=== PATIENT | male | born 1945 ===

== ENCOUNTER → 2017-03-29 | Outpatient (CLI) | payer MEDICARE ==
[~2017-03-29] MED LIST: ABA250I; ABA250I IV; ACET-1966 PO; ACET-2031 PO; ALL300 PO; ALLO-119 PO; ALP25 PO; ASP81 PO; ASPI81TA94 PO; BENA40TA52 PO; CALC-488 PO; CINN500C12 PO; CITA-139 PO; CLIN-75 PO; DILT120T13 PO; DIPH-740 PO; FOLI-68 PO; HYDR12.556 PO; HYDR12.561 PO; INSU100C12 SQ; INSU100C14 SQ; INSU100I28 SQ; INSU100I30 SUBQ; INSU100I35 SQ; LANI SQ; LANI SUBQ; METF-1 PO; METF-409 PO; METF-420 PO; METH2.5T43 PO; MULT-775 PO; MULT-865 PO; OLME1TAB63 PO; OLME40TA17 PO; ONDA4TAB97 PO; PRAV40TA77 PO; PRAV40TA78 PO; RANI-324 PO; SULF-198 PO; TRAM-420 PO; TRAM-627 PO
[2017-04-14 08:26] VITALS: BMI 24.0
== END ==
LOC: AMB 06:34
PROVIDERS: ATTEND Nurse Practitioner
DX: M25.511 Pain in right shoulder (principal); I50.9 Heart failure, unspecified; E11.9 Type 2 diabetes mellitus without complications; I10 Essential (primary) hypertension
CPT/HCPCS: A0425; A0428; A0888

== ENCOUNTER 2017-04-18 09:53 | Outpatient (RCR) | payer MEDICARE ==
[2017-04-14 08:26] VITALS: BMI 24.0
--- NOTE | 2017-04-18 15:19 | Medical Nutrition Therapy ---
Nutritional Education Nutrition Education Topic: Diabetic Nutrition Learning Barriers: Cognitive Learning Readiness: Interested Teaching Methods: Discussion, Handout Response to Teaching: Verbalize understanding Teaching Recipient: Patient, Primary Caregiver Nutrition Counseling: Pt and attended session. Pt states takes care of diabetes. Reviewed plate method with pt and . Provided meal plan of 45gm CHO/meal with 15gm CHO snacks or 1.5 c CHO/meal 1/2c snacks. Recommended taking 30gm CHO with protein if BG >300 and taking 15U insulin at bedtime to avoid lows at night. Recommend taking 15gm CHO with protein if BG < 300 and taking less insulin. Pt and eats out daily. Reviewed typical meals and the CHO amount he recieves. Pt gave permission to call 04/23 and review with . Will ask to track what he is eating and will make a handout on how to make restaurant foods work with his BG levels. Encoruaged pt to limit snacks to 1 serving or 1/2c between meals. Nutrition Monitoring & Eval RD Patient Assessment Time: [address] Assessment Type: RD Education Nutritional Comment: Provided 30 minutes diabetes education focusing on nutrition. Copies To Copies to: WIL TENA MD, BETH Apr 18, 2017 15:19
[2017-05-21] MEDS ORDERED: INSU100I30 SUBQ ×2 (11:21→11:25)
== END 2017-05-21 15:49 | disposition home or self-care (01) ==
LOC: DIET 09:53
PROVIDERS: ATTEND Family Medicine
DX: Z71.3 Dietary counseling and surveillance (principal); E11.9 Type 2 diabetes mellitus without complications; Z79.4 Long term (current) use of insulin
CPT/HCPCS: G0108 ×2

== ENCOUNTER 2017-04-29 12:44 | Outpatient (RCR) | payer MEDICARE ==
[2017-02-26] MEDS: LIDOCAINE/SOD BICARB 8.4% SYR ID PRN (08:15)
[2017-02-26 08:24] VITALS: BP 119/80
[2017-02-26 08:28] LABS: PLATELET COUNT, AUTOMATED 225 K/uL (150-450)
[2017-03-28 13:18] LABS: PLATELET COUNT, AUTOMATED 279 K/uL (150-450)
[2017-03-28] MEDS: LIDOCAINE/SOD BICARB 8.4% SYR ID PRN (13:20)
[~2017-04-29 12:44] MED LIST changes: +ABATACEPT 250 MG SDV 750 MG in NS(*) 0.9% 100 ML BAG 100 ML IVPB ONE; +DEXAMETHASONE SOD 4 MG/ML VIAL ONE; +DEXTROSE 5%(*) 100 ML BAG 100 ML IVPB PRN; +LIDOCAINE MPF 1% 5 ML VIAL ONE; +METOCLOPRAMIDE 10 MG/2 ML SDV ONE; +NS(*) 0.9% 100 ML BAG 100 ML IVPB PRN; +ONDANSETRON 4 MG/2 ML VIAL ONE; +PROPOFOL EMUL(*) 10MG/ML 20 ML 20 ML ONE; +ePHEDrine 25 MG/5 ML DISP.SYR IVP ONE; +fentaNYL CITR 100 MCG/2 ML AMP ONE
[2017-04-29 12:58] VITALS: BP 134/75
[2017-04-29 13:01] LABS: PLATELET COUNT, AUTOMATED 309 K/uL (150-450)
[2017-04-29] MEDS ORDERED: ABATACEPT 250 MG SDV 750 MG in NS(*) 0.9% 100 ML BAG 100 ML IVPB ONE (14:30)
[2017-05-21] MEDS ORDERED: INSU100I30 SUBQ ×2 (11:21→11:25)
== END 2017-05-26 ==
LOC: SPU 12:44
PROVIDERS: ATTEND Internal Medicine Rheumatology
DX: M05.79 Rheumatoid arthritis with rheumatoid factor of multiple sites without organ or systems involvement (principal)
CPT/HCPCS: 85025; 96365; J0129; J7050; 82040; 82247; 82310; 82374; 82435; 82565; 82947; 84075; 84132; 84155; 84295; 84450; 84460; 84520; J1100; J2001; J2405; J2704; J2765; J3010

== ENCOUNTER → 2017-06-06 | Outpatient (CLI) | payer MEDICARE ==
[2017-04-14 08:26] VITALS: BMI 24.0
[~2017-06-06] MED LIST changes: -ABATACEPT 250 MG SDV 750 MG in NS(*) 0.9% 100 ML BAG 100 ML IVPB ONE; -DEXAMETHASONE SOD 4 MG/ML VIAL ONE; -DEXTROSE 5%(*) 100 ML BAG 100 ML IVPB PRN; -LIDOCAINE MPF 1% 5 ML VIAL ONE; -METOCLOPRAMIDE 10 MG/2 ML SDV ONE; -NS(*) 0.9% 100 ML BAG 100 ML IVPB PRN; -ONDANSETRON 4 MG/2 ML VIAL ONE; -PROPOFOL EMUL(*) 10MG/ML 20 ML 20 ML ONE; -ePHEDrine 25 MG/5 ML DISP.SYR IVP ONE; -fentaNYL CITR 100 MCG/2 ML AMP ONE
== END ==
LOC: LAB 08:58
PROVIDERS: ATTEND Family Medicine
DX: Z02.9 Encounter for administrative examinations, unspecified (principal)

== ENCOUNTER → 2017-06-06 | Outpatient (CLI) | payer MEDICARE ==
[2017-04-14 08:26] VITALS: BMI 24.0
== END ==
LOC: LAB 09:00
PROVIDERS: ATTEND Family Medicine
DX: L02.31 Cutaneous abscess of buttock (principal); A49.01 Methicillin susceptible Staphylococcus aureus infection, unspecified site
CPT/HCPCS: 87070; 87077; 87186

== ENCOUNTER 2017-07-28 13:44 | Inpatient (IN) | payer MEDICARE ==
[2017-04-14 08:26] VITALS: Ht 165.1 cm; Wt 77.1 kg
[~2017-07-28] VITALS: Ht 165.1 cm; Wt 77.1 kg
[2017-07-28] VITALS (21 sets, daily range): BP systolic 117–156; BP diastolic 60–118
[~2017-07-28 13:44] MED LIST changes: +CLOB15OI16 TP; +CLOB50SO11 TP; +HYDR15CR4 TP
[2017-07-28] MEDS ORDERED: NS(*) 0.9% 1000 ML BAG 1,000 ML IV ONE (13:48)
--- NOTE | 2017-07-28 13:48 | ER Report ---
History and Physical Time Seen By : 13:48 Hx. of Stated Complaint: High blood sugar HPI/ROS 72-year-old male history of RA was at the cancer center for treatment they checked his blood sugar was noted to be over 800 was sent to the emergency room at that point states that he has not been taking his insulin as prescribed he supposed be taking 15 of Lantus the morning 50 units at night didn't 15 with each meal with short acting insulin states he does not take that as prescribed with he may have taken 50 units last night before bedtime Allergies: Coded Allergies: No Known Drug Allergies (Verified , 03/29/17) Home Meds Active Scripts Clobetasol Propionate 0.05% Solution (CLOBETASOL PROPIONATE 0.05% SOLUTION) 50 Ml Solution, 1 BIENVENIDO TP BID for 30 Days, #1 BOT 2 Refills Prov:PAMELA PHELPS [facility] 07/24/17 Hydrocortisone Valerate 0.2% 15 Gm Cream (HYDROCORTISONE VALERATE 0.2% 15 GM CREAM) 15 Gm Cream..g., 1 BIENVENIDO TP BID for 30 Days, #1 TUBE 2 Refills Prov:PAMELA PHELPS [facility] 07/24/17 Clobetasol Propionate (CLOBETASOL PROPIONATE) 15 Gm Oint...g., 1 BIENVENIDO TP BID for 30 Days, #30 GM 2 Refills Prov:PAMELA PHELPS 07/24/17 Insulin Glargine,Hum.rec.anlog (LANTUS SOLOSTAR) 100 Unit/1 Ml Insuln.pen, 15- 40 UNIT SUBQ BID, #2 BOX 11 Refills take 15U in the morning and 40U at night Prov:WIL TENA MD 06/13/17 Sulfamethoxazole/Trimet 800-160 Mg Tab (BACTRIM DS TABLET) 1 Each Tablet, 1 TAB PO Q12H for 3 Days, #6 TAB continue bactrim twice daily for a total of 10 days Prov:WIL TENA MD 06/11/17 Tramadol Hcl (ULTRAM) 50 Mg Tablet, 50 MG PO Q6H Y for PAIN for 10 Days, #30 TAB Prov:WIL TENA MD 06/06/17 Reported Medications Acetaminophen (TYLENOL) 325 Mg Tablet, 325 MG PO PRN, TAB 06/26/17 Abatacept (Orencia 250 mg Vial) 250 Mg Vial, 750 MG IV q month 04/13/17 Insulin Aspart (NOVOLOG FLEXPEN) 100 Unit/1 Ml Insuln.pen, 3-6 UNIT SQ TIDCF 04/13/17 Allopurinol (ZYLOPRIM) 300 Mg Tablet, 150 MG PO QDAY, TAB 04/13/17 Ranitidine Hcl (ZANTAC) 150 Mg Tablet, 1 TAB PO BID Y for HEARTBURN, TAB 10/15/16 Pravastatin Sodium (PRAVASTATIN SODIUM) 40 Mg Tablet, 1 TAB PO QDAY 10/15/16 Multivitamin (DAILY MULTIPLE VITAMIN) 1 Each Tablet, 1 TAB PO DAILY 10/15/16 Diltiazem Hcl (DILTIAZEM HCL) 120 Mg Tablet, 1 TAB PO DAILY 10/15/16 Aspirin (ASPIRIN) 81 Mg Tab.chew, 81 MG PO QDAY, TAB.CHEW 10/15/16 Past Medical/Surgical History History of hypertension high cholesterol type II diabetes and rheumatoid arthritis Reviewed Nurses Notes: Yes Old Medical Records Reviewed: Yes Hx Smoking: No Smoking Status: Former Smoker Exposure to Second Hand Smoke?: No Hx Substance Use Disorder: No Hx Alcohol Use: No Family History of: HTN, Other (mother has diagnosis of stomach cancer) Constitutional Vital Sign - Last 24 Hours 07/28/17 07/28/17 07/28/17 07/28/17 13:49 13:52 13:54 13:59 Pulse 83 81 72 Resp 18 B/P (MAP) 172/86 172/86 (114) Pulse Ox 85 90 94 O2 Delivery Room Air 07/28/17 07/28/17 07/28/17 07/28/17 14:04 14:09 14:14 14:19 Pulse 73 71 72 71 Resp 18 24 20 17 B/P (MAP) 153/78 (103) Pulse Ox 93 92 92 95 07/28/17 07/28/17 07/28/17 07/28/17 14:23 14:24 14:29 14:30 Pulse 73 74 Resp 14 20 B/P (MAP) 164/68 (100) Pulse Ox 91 91 O2 Flow Rate 2.0 07/28/17 07/28/17 07/28/17 07/28/17 14:34 14:39 14:44 14:49 Pulse 75 ? 85 Resp 16 Pulse Ox 93 92 07/28/17 07/28/17 07/28/17 07/28/17 14:52 14:54 14:59 15:00 Pulse 91 85 B/P (MAP) 160/76 (104) 160/78 (105) Pulse Ox 95 94 07/28/17 07/28/17 07/28/17 07/28/17 15:04 15:09 15:15 15:24 Pulse 84 78 84 Resp 25 21 B/P (MAP) 169/83 (111) Pulse Ox 93 95 07/28/17 07/28/17 07/28/17 07/28/17 15:26 15:30 15:39 15:41 Pulse ??? B/P (MAP) 145/90 (108) 158/101 (120) 156/77 (103) Physical Exam CHIEF COMPLAINT: High blood sugar HISTORY OF PRESENT ILLNESS: 72-year-old male sent over from the cancer clinic was noted to have a blood sugar over 300 and his screening lab work is asymptomatic at this point is noncompliant by his own history unsure what insulin he has taken the last 24 hours REVIEW OF SYSTEMS: Respiratory: No cough, no dyspnea. Cardiovascular: No chest pain, no palpitations. Gastrointestinal: No vomiting, no abdominal pain. Musculoskeletal: No back pain. Medical Decision Making Data Points Result Diagram: 07/28/17 1550 Laboratory Hematology Test 07/28/17 13:50 07/28/17 14:15 07/28/17 15:35 Urine Color Colorless Urine Clarity Clear Urine pH 6.0 pH (4.8-9.5) Urine Specific [place] 1.018 Urine Protein Negative mg/dL (NEGATIVE) Urine Glucose (UA) 500 mg/dL (NEGATIVE) Urine Ketones Negative mg/dL (NEGATIVE) Urine Blood Negative (NEGATIVE) Urine Nitrite Negative (NEGATIVE) Urine Bilirubin Negative (NEGATIVE) Urine Urobilinogen Negative mg/dL (0.2-1.9) Urine Leukocyte Esterase Negative (NEGATIVE) Urine RBC None /HPF (0-2/HPF) Urine WBC None /HPF (0-5/HPF) Urine Squamous Epithelial Cells None /LPF (</=FEW) Urine Bacteria Negative /HPF (NONE-FEW) Urine Mucus None /HPF (NONE-FEW) Venous Blood pH 7.31 (7.31-7.41) Osmolality 317 mOSM/K (275-295) Troponin I < 0.012 ng/ml Acetone, Qualitative Negative Whole Blood Glucose > 600 mg/DL (75-110) Chemistry Test 07/28/17 13:50 07/28/17 14:15 07/28/17 15:35 Urine Color Colorless Urine Clarity Clear Urine pH 6.0 pH (4.8-9.5) Urine Specific [place] 1.018 Urine Protein Negative mg/dL (NEGATIVE) Urine Glucose (UA) 500 mg/dL (NEGATIVE) Urine Ketones Negative mg/dL (NEGATIVE) Urine Blood Negative (NEGATIVE) Urine Nitrite Negative (NEGATIVE) Urine Bilirubin Negative (NEGATIVE) Urine Urobilinogen Negative mg/dL (0.2-1.9) Urine Leukocyte Esterase Negative (NEGATIVE) Urine RBC None /HPF (0-2/HPF) Urine WBC None /HPF (0-5/HPF) Urine Squamous Epithelial Cells None /LPF (</=FEW) Urine Bacteria Negative /HPF (NONE-FEW) Urine Mucus None /HPF (NONE-FEW) Venous Blood pH 7.31 (7.31-7.41) Osmolality 317 mOSM/K (275-295) Troponin I < 0.012 ng/ml Acetone, Qualitative Negative Whole Blood Glucose > 600 mg/DL (75-110) Toxicology Test 07/28/17 14:15 Acetone, Qualitative Negative Urinalysis Test 07/28/17 13:50 Urine Color Colorless Urine Clarity Clear Urine pH 6.0 pH (4.8-9.5) Urine Specific [place] 1.018 Urine Protein Negative mg/dL (NEGATIVE) Urine Glucose (UA) 500 mg/dL (NEGATIVE) Urine Ketones Negative mg/dL (NEGATIVE) Urine Blood Negative (NEGATIVE) Urine Nitrite Negative (NEGATIVE) Urine Bilirubin Negative (NEGATIVE) Urine Urobilinogen Negative mg/dL (0.2-1.9) Urine Leukocyte Esterase Negative (NEGATIVE) Urine RBC None /HPF (0-2/HPF) Urine WBC None /HPF (0-5/HPF) Urine Squamous Epithelial Cells None /LPF (</=FEW) Urine Bacteria Negative /HPF (NONE-FEW) Urine Mucus None /HPF (NONE-FEW) EKG/Imaging EKG Interpretation EKG at 1350 normal sinus rhythm ventricular rate 75 QTc is 413 ED Course/Re-evaluation Clinical Indication for ER IV: Hydration ED Course Normal saline 1 L in the emergency room and given 10 units of IV the regular insulin and started on insulin drip drip per protocol I did discuss this patient with Dr. Carrillo we'll admit him ICU Re-evaluation Blood sugar after one hour of on insulin drip is still reading high serum glucose is been ordered Decision to Disposition Date: Jul 28, 2017 Decision to Disposition Time: 15:16 Depart Departure Latest Vital Signs Vital Signs Date Time Temp Pulse Resp B/P (MAP) Pulse Ox O2 Delivery O2 Flow Rate FiO2 07/28/17 15:41 156/77 (103) 07/28/17 15:39 ??? 07/28/17 15:24 21 95 07/28/17 14:23 2.0 07/28/17 13:49 Room Air Impression: Primary Impression: Hyperglycemia Condition: Improved Disposition: Admitted from ER Referrals: WIL TENA MD (PCP) LORELEI DIAZ Jul 28, 2017 13:48
--- NOTE | 2017-07-28 14:13 | EKG ---
FACILITY: [facility] PATIENT NAME: SUSHMA CHOWDARY : [id number] MR: [id number] V: [id number] EXAM DATE: ORDERING PHYSICIAN: LORELEI DIAZ TECHNOLOGIST: RILEY Clark Reason : HIGH BLOOD SUGAR Blood Pressure : / mmHG Vent. Rate : 075 BPM Atrial Rate : 075 BPM P-R Int : 184 ms QRS Dur : 074 ms QT Int : 370 ms P-R-T Axes : 072 000 056 degrees QTc Int : 413 ms Normal sinus rhythm Normal ECG When compared with ECG of 13-APR-2017 22:07, premature atrial complexes are no longer present Nonspecific T wave abnormality no longer evident in Inferior leads Confirmed by LUISANA WEN ([id number]) on 07/29/2017 7:07:40 AM Referred By: JOE Confirmed By:LUISANA WEN
--- NOTE | 2017-07-28 14:14 | RADIOLOGY IMAGING REPORT ---
FACILITY: PATIENT NAME: Joe Day : 1945 MR: [id number] V: [id number] EXAM DATE: ORDERING PHYSICIAN: LORELEI DIAZ TECHNOLOGIST: Location: [facility] - [place] Patient: Joe Day : 1945 Visit/Account:[id number] Date of Sevice: 07/28/2017 CHEST SINGLE AP Indication: High blood sugar.. Comparison: 04/14/2017. Findings: Cardiomediastinal silhouette and pulmonary vessels within normal limits for the technique and inspira tion. There is no focal infiltrate or lobar consolidation. No pneumothorax or pleural effusion. No nodule. Mild scarring in the left lower lobe. Chronic interstitial changes. Upper abdomen is unrem arkable. No acute bony abnormality. IMPRESSION: 1. No acute cardiopulmonary process. Report Dictated By: Pawel Reed at 07/28/2017 2:10 PM Report E-Signed By: Pawel Reed at 07/28/2017 2:11 PM WSN:[id number]
[2017-07-28] MEDS ORDERED: INS HUM REG* 100 U/ML(ER ONLY) 100 UNIT in NS(*) 0.9% 100 ML BAG 99 ML IV SCH (14:25)
[2017-07-28] MEDS ORDERED: INSU HUM REG 100 U/ML(ER ONLY) 10 ML VIAL IV ONE (14:25)
[2017-07-28] MEDS ORDERED: INSULIN HUM REG 100 UN/ML 3 ML 100 UNIT in NS(*) 0.9% 100 ML BAG 100 ML IV SCH (16:49)
--- NOTE | 2017-07-28 17:09 | History & Physical ---
History of Present Illness Chief Complaint Elevated blood sugars. History of Present Illness This patient presented to special procedures for his Orencia injection, but was found to have a significantly elevated blood sugar on his lab work. He was sent directly to the emergency room. The patient reports that his sugars have been steadily increasing over the past several days. History Problems: (1) Rheumatoid arthritis Status: Chronic (2) Essential hypertension Status: Chronic (3) DM2 (diabetes mellitus, type 2) Home Meds Active Scripts Clobetasol Propionate 0.05% Solution (CLOBETASOL PROPIONATE 0.05% SOLUTION) 50 Ml Solution, 1 BIENVENIDO TP BID for 30 Days, #1 BOT 2 Refills Prov:PAMELA PHELPS [facility] 07/24/17 Hydrocortisone Valerate 0.2% 15 Gm Cream (HYDROCORTISONE VALERATE 0.2% 15 GM CREAM) 15 Gm Cream..g., 1 BIENVENIDO TP BID for 30 Days, #1 TUBE 2 Refills Prov:PAMELA PHELPS [facility] 07/24/17 Clobetasol Propionate (CLOBETASOL PROPIONATE) 15 Gm Oint...g., 1 BIENVENIDO TP BID for 30 Days, #30 GM 2 Refills Prov:PAMELA PHELPS [facility] 07/24/17 Insulin Glargine,Hum.rec.anlog (LANTUS SOLOSTAR) 100 Unit/1 Ml Insuln.pen, 15- 40 UNIT SUBQ BID, #2 BOX 11 Refills take 15U in the morning and 40U at night Prov:WIL TENA MD 06/13/17 Sulfamethoxazole/Trimet 800-160 Mg Tab (BACTRIM DS TABLET) 1 Each Tablet, 1 TAB PO Q12H for 3 Days, #6 TAB continue bactrim twice daily for a total of 10 days Prov:WIL TENA MD 06/11/17 Tramadol Hcl (ULTRAM) 50 Mg Tablet, 50 MG PO Q6H Y for PAIN for 10 Days, #30 TAB Prov:WIL TENA MD 06/06/17 Reported Medications Acetaminophen (TYLENOL) 325 Mg Tablet, 325 MG PO PRN, TAB 06/26/17 Abatacept (Orencia 250 mg Vial) 250 Mg Vial, 750 MG IV q month 04/13/17 Insulin Aspart (NOVOLOG FLEXPEN) 100 Unit/1 Ml Insuln.pen, 3-6 UNIT SQ TIDCF 04/13/17 Allopurinol (ZYLOPRIM) 300 Mg Tablet, 150 MG PO QDAY, TAB 04/13/17 Ranitidine Hcl (ZANTAC) 150 Mg Tablet, 1 TAB PO BID Y for HEARTBURN, TAB 10/15/16 Pravastatin Sodium (PRAVASTATIN SODIUM) 40 Mg Tablet, 1 TAB PO QDAY 10/15/16 Multivitamin (DAILY MULTIPLE VITAMIN) 1 Each Tablet, 1 TAB PO DAILY 10/15/16 Diltiazem Hcl (DILTIAZEM HCL) 120 Mg Tablet, 1 TAB PO DAILY 10/15/16 Aspirin (ASPIRIN) 81 Mg Tab.chew, 81 MG PO QDAY, TAB.CHEW 10/15/16 Allergies: Coded Allergies: No Known Drug Allergies (Verified , 03/29/17) Patient History: FH: brain cancer FATHER FH: diabetes mellitus Siblings x8 FH: rheumatoid arthritis Siblings x8 FH: stomach cancer MOTHER Hx Smoking: No Smoking Status: Former Smoker Exposure to Second Hand Smoke?: No Caffeine Intake: Coffee, Soda Caffeine/Cups Per Day: 2-3 CUPS COFFEE, A LOT OF SODA Hx Alcohol Use: No Hx Substance Use Disorder: No Social Drug Use: Never Review of Systems All Systems Reviewed/Normal: Yes Exam Vital Signs Vital Signs Date Time Temp Pulse Resp B/P (MAP) Pulse Ox O2 Delivery O2 Flow Rate FiO2 07/28/17 16:15 161/81 (107) 07/28/17 16:09 78 94 07/28/17 15:24 21 07/28/17 14:23 2.0 07/28/17 13:49 Room Air Neuro: No Gross deficits Eyes: PERRLA Cardiovascular: Regular Rate and Rhythm Respiratory: Clear to Auscultation GI: Abd Soft and Non-Tender Extremities: No Edema Integumentary: No Cyanosis Medical Decision Making Data Points Result Diagram: 07/28/17 1550 Assessment and Plan Problems: (1) Hyperosmolar non-ketotic state in patient with type 2 diabetes mellitus Status: Acute Assessment & Plan: He did present with a blood sugar >800, but was not acidotic. He has received approximately 2 liters of fluid since arrival. We have decreased his insulin infusion and will complete his current fluid bolus. Fingerstick glucoses are ordered every hour. (2) DM2 (diabetes mellitus, type 2) Assessment & Plan: He is on chronic treatment with Lantus and NovoLog. He may be a candidate for an insulin pump given his difficulty with controlling his sugars, but we will defer this to his primary physician. (3) Essential hypertension Status: Chronic Assessment & Plan: He is on chronic treatment with diltiazem. (4) Rheumatoid arthritis Status: Chronic Assessment & Plan: He is on chronic treatment with Orencia. Central Venous Access Medical Necessity for Access: IV Access, Medication Administration Copies to: WIL TENA MD Venous Thromboembolism Antithrombotics Is Pt On Any Antithrombotics?: No Exam Sepsis Risk: No Definite Risk LUISANA WEN DO Jul 28, 2017 17:09
[2017-07-28] MEDS: KCL/D1/2NS 20 MEQ 1000 ML 1,000 ML IV PRN ×2 (17:44→21:43)
[2017-07-28] MEDS ORDERED: LANI SUBQ (19:38)
[2017-07-29] VITALS (7 sets, daily range): BP systolic 129–140; BP diastolic 62–76
[2017-07-29] MEDS: KCL/D1/2NS 20 MEQ 1000 ML 1,000 ML IV PRN ×2 (01:37→05:20)
[2017-07-29 05:30] LABS: PLATELET COUNT, AUTOMATED 192 K/uL (150-450)
[2017-07-29] MEDS ORDERED: INSU100I35 SQ ×2 (08:03→17:11)
[2017-07-29] MEDS ORDERED: ACET-1966 PO (08:03)
[2017-07-29] MEDS ORDERED: LANI SUBQ ×2 (08:05→17:13)
--- NOTE | 2017-07-29 08:19 | Hospitalist Depart ---
Discharge Summary Reason for Hosp/Final Diag: (1) Hyperosmolar non-ketotic state in patient with type 2 diabetes mellitus Status: Acute Hospital Course & Plan: He did present with a blood sugar >800, but was not acidotic. He did receive approximately 2 liters of IV fluids for dehydration. He was initially placed on IV insulin and fingerstick glucoses were ordered every hour. His glucoses improved significantly. His electrolytes were monitored closely and no abnormalities were noted. He was transitioned back to subcutaneous insulin. (2) DM2 (diabetes mellitus, type 2) Hospital Course & Plan: He is on chronic treatment with Lantus and NovoLog. His hyperglycemia is due to noncompliance. He freely admits he does not watch his diet and doses his insulin very irregularly. I discussed with the patient and his the need to adhere to the prescribed regimen and diet. He does understand he risks complications related to his diabetes. He voiced understanding, but believes "it is hard". I offered to have further teaching, but he declined. His voiced her frustration at trying to get him to take care of his diabetes as well. At this point, we will continue his usual regimen of Lantus 30units AM and 50units PM with Novolog 6units with each meal. He will work on his diet, keep a record of his glucoses AC and HS, and follow up with Dr. Tena and Dr. Alpesh Saini, PharmD in 7-10 days. (3) Essential hypertension Status: Chronic Hospital Course & Plan: He is on chronic treatment with diltiazem. (4) Rheumatoid arthritis Status: Chronic Hospital Course & Plan: He is on chronic treatment with Orencia. Departure Weight (Pounds): 170 Weight (Ounces): 1.0 Result Diagram: 07/29/1751707/29/17517 Item Value Date Time Sodium Level 127 mmol/L L 07/28/17 1315 Potassium Level 5.4 mmol/L H 07/28/17 1315 Chloride Level 91 mmol/L L 07/28/17 1315 Carbon Dioxide Level 22 mmol/L 07/28/17 1315 Blood Urea Nitrogen 13 mg/dl 07/28/17 1315 Creatinine 1.20 mg/dl 07/28/17 1315 Glomerular Filtration Rate Calc 59.3 07/28/17 1315 Random Glucose 839 mg/dl *H 07/28/17 1315 Calcium Level 8.1 mg/dl L 07/28/17 1315 Total Bilirubin 0.4 mg/dl 07/28/17 1315 Aspartate Amino Transf (AST/SGOT) 21 U/L 07/28/17 1315 Alanine Aminotransferase (ALT/SGPT) 30 U/L 07/28/17 1315 Alkaline Phosphatase 173 U/L H 07/28/17 1315 Total Protein 7.4 gm/dl 07/28/17 1315 Albumin 4.1 g/dl 07/28/17 1315 Troponin I < 0.012 ng/ml 07/28/17 1415 Whole Blood Glucose > 600 mg/DL *H 07/28/17 1406 Osmolality 317 mOSM/K H 07/28/17 1415 Whole Blood Glucose > 600 mg/DL *H 07/28/17 1535 Random Glucose 569 mg/dl *H 07/28/17 1550 Whole Blood Glucose 439 mg/DL H 07/28/17 1723 Whole Blood Glucose 325 mg/DL H 07/28/17 1834 Whole Blood Glucose 398 mg/DL H 07/28/17 1941 Whole Blood Glucose 488 mg/DL H 07/28/17 2036 Whole Blood Glucose 446 mg/DL H 07/28/17 2153 Whole Blood Glucose 428 mg/DL H 07/28/17 2246 Whole Blood Glucose 357 mg/DL H 07/28/17 2343 Whole Blood Glucose 334 mg/DL H 07/29/17 0047 Whole Blood Glucose 291 mg/DL H 07/29/17 0140 Whole Blood Glucose 248 mg/DL H 07/29/17 0239 Whole Blood Glucose 232 mg/DL H 07/29/17 0348 Whole Blood Glucose 200 mg/DL H 07/29/17 0515 Calcium Level 8.9 mg/dl 07/29/17 0518 Random Glucose 214 mg/dl H 07/29/17 0518 Glomerular Filtration Rate Calc > 60.0 07/29/17 0518 Creatinine 1.00 mg/dl 07/29/17 0518 Blood Urea Nitrogen 8 mg/dl L 07/29/17 0518 Carbon Dioxide Level 25 mmol/L 07/29/17 0518 Chloride Level 100 mmol/L 07/29/17 0518 Potassium Level 4.3 mmol/L 07/29/17 0518 Sodium Level 135 mmol/L L 07/29/17 0518 Venous Blood pH 7.31 07/28/17 1415 White Blood Count 5.9 k/uL 07/28/17 1315 Hemoglobin 14.3 g/dL 07/28/17 1315 Hematocrit 46.0 % 07/28/17 1315 Platelet Count 263 K/uL 07/28/17 1315 Platelet Count 192 K/uL 07/29/17 0518 Hematocrit 39.5 % L 07/29/17 0518 Hemoglobin 13.0 g/dL L 07/29/17 0518 White Blood Count 5.6 k/uL 07/29/17 0518 Acetone, Qualitative Negative 07/28/17 1415 Urine Color Colorless 07/28/17 1350 Urine Clarity Clear 07/28/17 1350 Urine pH 6.0 pH 07/28/17 1350 Urine Specific [place] 1.018 07/28/17 1350 Urine Glucose (UA) 500 mg/dL 07/28/17 1350 Urine Protein Negative mg/dL 07/28/17 1350 Urine Blood Negative 07/28/17 1350 Urine Ketones Negative mg/dL 07/28/17 1350 Urine Nitrite Negative 07/28/17 1350 Urine Bilirubin Negative 07/28/17 1350 Urine Urobilinogen Negative mg/dL 07/28/17 1350 Urine Leukocyte Esterase Negative 07/28/17 1350 Urine RBC None /HPF 07/28/17 1350 Urine WBC None /HPF 07/28/17 1350 Urine Squamous Epithelial Cells None /LPF 07/28/17 1350 Urine Bacteria Negative /HPF 07/28/17 1350 Urine Mucus None /HPF 07/28/17 1350 Imaging PATIENT NAME: Joe Day : 1945 MR: [id number] V: [id number] EXAM DATE: ORDERING PHYSICIAN: LORELEI DIAZ TECHNOLOGIST: [place] [facility] [place] : 1945 Visit/Account:[id number] Date of Sevice: 07/28/2017 CHEST SINGLE AP Indication: High blood sugar.. Comparison: 04/14/2017. Findings: Cardiomediastinal silhouette and pulmonary vessels within normal limits for the technique and inspiration. There is no focal infiltrate or lobar consolidation. No pneumothorax or pleural effusion. No nodule. Mild scarring in the left lower lobe. Chronic interstitial changes. Upper abdomen is unremarkable. No acute bony abnormality. IMPRESSION: 1. No acute cardiopulmonary process. Report Dictated By: Pawel Reed at 07/28/2017 2:10 PM Report E-Signed By: Pawel Reed at 07/28/2017 2:11 PM WSN:[id number] EKG PATIENT NAME: JOE DAY : [id number] MR: [id number] V: [id number] EXAM DATE: ORDERING PHYSICIAN: LORELEI DIAZ TECHNOLOGIST: RILEY Clark Reason : HIGH BLOOD SUGAR Blood Pressure : / mmHG Vent. Rate : 075 BPM Atrial Rate : 075 BPM P-R Int : 184 ms QRS Dur : 074 ms QT Int : 370 ms P-R-T Axes : 072 000 056 degrees QTc Int : 413 ms Normal sinus rhythm Normal ECG When compared with ECG of 13-APR-2017 22:07, premature atrial complexes are no longer present Nonspecific T wave abnormality no longer evident in Inferior leads Confirmed by LUISANA WEN ([id number]) on 07/29/2017 7:07:40 AM Referred By: JOE Confirmed By:LUISANA WEN Condition: Improved Discharge: Home, Self Care Follow-Up Labs: Finger Sticks (AC and HS) Time Spent: > 30 min Discharge Instructions Home Meds Active Scripts Insulin Glargine (LANTUS) 100 Unit/Ml Soln, 0 SUBQ BID for 30 Days, VIAL TAKE 30 UNITS IN THE MORNING 50 UNITS AT NIGHT Prov:NIKITA BETANCOURT MD 07/29/17 Acetaminophen (TYLENOL) 325 Mg Tablet, 325 MG PO Q6H Y for PAIN MDD 3000mg for 30 Days, TAB Prov:NIKITA BETANCOURT MD 07/29/17 Insulin Aspart (NOVOLOG FLEXPEN) 100 Unit/1 Ml Insuln.pen, 6 UNIT SQ TIDCF for 30 Days, VIAL Prov:NIKITA BETANCOURT MD 07/29/17 Clobetasol Propionate 0.05% Solution (CLOBETASOL PROPIONATE 0.05% SOLUTION) 50 Ml Solution, 1 BIENVENIDO TP BID for 30 Days, #1 BOT 2 Refills Prov:PAMELA PHELPS 07/24/17 Hydrocortisone Valerate 0.2% 15 Gm Cream (HYDROCORTISONE VALERATE 0.2% 15 GM CREAM) 15 Gm Cream..g., 1 BIENVENIDO TP BID for 30 Days, #1 TUBE 2 Refills Prov:PAMELA PHELPS [facility] 07/24/17 Tramadol Hcl (ULTRAM) 50 Mg Tablet, 50 MG PO Q6H Y for PAIN for 10 Days, #30 TAB Prov:SHERON TENA MD 06/06/17 Reported Medications Abatacept (Orencia 250 mg Vial) 250 Mg Vial, 750 MG IV q month 04/13/17 Allopurinol (ZYLOPRIM) 300 Mg Tablet, 150 MG PO QDAY, TAB 04/13/17 Ranitidine Hcl (ZANTAC) 150 Mg Tablet, 1 TAB PO BID Y for HEARTBURN, TAB 10/15/16 Pravastatin Sodium (PRAVASTATIN SODIUM) 40 Mg Tablet, 1 TAB PO QDAY 10/15/16 Diltiazem Hcl (DILTIAZEM HCL) 120 Mg Tablet, 1 TAB PO DAILY 10/15/16 Aspirin (ASPIRIN) 81 Mg Tab.chew, 81 MG PO QDAY, TAB.CHEW 10/15/16 Discontinued Reported Medications Multivitamin (DAILY MULTIPLE VITAMIN) 1 Each Tablet, 1 TAB PO DAILY 10/15/16 Discontinued Scripts Clobetasol Propionate (CLOBETASOL PROPIONATE) 15 Gm Oint...g., 1 BIENVENIDO TP BID for 30 Days, #30 GM 2 Refills Prov:JOZEF PHELPSTENA Miles [facility] 07/24/17 Insulin Glargine 100 Un/Ml Pen (LANTUS SOLOSTAR PEN) 100 Unit/1 Ml Insuln.pen, 15-40 UNIT SUBQ BID, #2 BOX 11 Refills take 15U in the morning and 40U at night Prov:SHERON TENA MD 06/13/17 Sulfamethoxazole/Trimet 800-160 Mg Tab (BACTRIM DS TABLET) 1 Each Tablet, 1 TAB PO Q12H for 3 Days, #6 TAB continue bactrim twice daily for a total of 10 days Prov:SHERON TENA MD 06/11/17 Follow up Referrals: Internal Medicine @ [facility] with Sheron Tena Md Diet: Diabetic Activity: As Tolerated Special Instructions: Follow up with Dr. Tena in 7-10 days or sooner if any problems. Copies to: SHERON TENA MD; JOSLYN SAINI PHARMD Venous Thromboembolism Antithrombotics Is Pt On Any Antithrombotics?: Yes (aspirin) NIKITA BETANCOURT MD Jul 29, 2017 08:19
[2017-07-29] MEDS ORDERED: ENOXAPARIN 40 MG/0.4ML SYR SC SCH (09:00)
[2017-07-29] MEDS ORDERED: DILTIAZEM CD 120 MG CAPCR PO SCH (09:00)
[2017-07-29] MEDS ORDERED: INSULIN HUM REG 100 UN/ML 3 ML 100 UNIT in NS(*) 0.9% 100 ML BAG 99 ML IV SCH (15:00)
[2017-07-30] MEDS ORDERED: INSU100I28 SQ (08:46)
[2017-07-30] MEDS ORDERED: INFLUENZA VIRUS VAC 0.5 ML SYR IM ONLY ONE (09:00)
== END 2017-07-29 09:15 | disposition home or self-care (01) | DRG 639 ==
LOC: ER 13:57 → ICU 15:43
PROVIDERS: ADMIT Family Medicine; ATTEND Family Medicine
DX: E11.00 Type 2 diabetes mellitus with hyperosmolarity without nonketotic hyperglycemic-hyperosmolar coma (NKHHC) (principal); E86.0 Dehydration; I10 Essential (primary) hypertension; T38.3X6A Underdosing of insulin and oral hypoglycemic [antidiabetic] drugs, initial encounter; E11.65 Type 2 diabetes mellitus with hyperglycemia; M06.9 Rheumatoid arthritis, unspecified; E78.00 Pure hypercholesterolemia, unspecified; Z87.891 Personal history of nicotine dependence; Z91.128 Patient's intentional underdosing of medication regimen for other reason; Z79.4 Long term (current) use of insulin
CPT/HCPCS: 36415; 36416; 71045; 81001; 82009; 82310; 82374; 82435; 82565; 82800; 82947; 82948; 83930; 84132; 84295; 84443; 84484; 84520; 85025; 93005; 96361; 96365; 99284; J1815; J3480; J7030; J7050

== ENCOUNTER → 2017-08-26 | Outpatient (RCR) | payer MEDICARE ==
[2017-04-14 08:26] VITALS: BMI 24.0
[2017-05-29] MEDS: NS(*) 0.9% 100 ML BAG 100 ML IVPB PRN (13:23)
[2017-05-29] MEDS: LIDOCAINE/SOD BICARB 8.4% SYR ID PRN (13:24)
[2017-05-29 13:31] LABS: PLATELET COUNT, AUTOMATED 287 K/uL (150-450)
[2017-05-29 14:04] VITALS: BP 143/79
[2017-05-29 15:45] VITALS: BP 141/72
[2017-06-26 12:51] VITALS: BP 135/71
[2017-06-26 12:59] LABS: PLATELET COUNT, AUTOMATED 284 K/uL (150-450)
[2017-07-28 13:03] VITALS: BP 150/86
[2017-07-28 13:21] LABS: PLATELET COUNT, AUTOMATED 263 K/uL (150-450)
[~2017-08-26] MED LIST changes: +ABATACEPT 250 MG SDV 750 MG in NS(*) 0.9% 100 ML BAG 100 ML IVPB ONE; +DEXTROSE 5%(*) 100 ML BAG 100 ML IVPB PRN; -RANI-324 PO; +RANI-366 PO
[2017-08-26 12:48] VITALS: BP 143/71
[2017-08-26 13:00] LABS: PLATELET COUNT, AUTOMATED 276 K/uL (150-450)
[2017-08-26] MEDS: LIDOCAINE/SOD BICARB 8.4% SYR ID PRN (13:39)
[2017-08-26] MEDS: NS(*) 0.9% 100 ML BAG 100 ML IVPB PRN (13:39)
== END ==
LOC: SPU 05-28 08:32
PROVIDERS: ATTEND Internal Medicine Rheumatology
DX: M05.79 Rheumatoid arthritis with rheumatoid factor of multiple sites without organ or systems involvement (principal)
CPT/HCPCS: 85025; 96365; 96372; J0129; J7050; 82040; 82247; 82310; 82374; 82435; 82565; 82947; 84075; 84132; 84155; 84295; 84450; 84460; 84520

== ENCOUNTER → 2017-09-10 | Outpatient (CLI) | payer MEDICARE ==
[2017-04-14 08:26] VITALS: BMI 24.0
[~2017-09-10] MED LIST changes: -ABATACEPT 250 MG SDV 750 MG in NS(*) 0.9% 100 ML BAG 100 ML IVPB ONE; -CITA-139 PO; +CITA-145 PO; -DEXTROSE 5%(*) 100 ML BAG 100 ML IVPB PRN; +METF-421 PO
== END ==
LOC: LAB 15:54
PROVIDERS: ATTEND Family Medicine
DX: E11.9 Type 2 diabetes mellitus without complications (principal)
CPT/HCPCS: 36415; 83036

== ENCOUNTER → 2017-09-22 | Outpatient (REF) | payer MEDICARE ==
[2017-04-14 08:26] VITALS: BMI 24.0
== END ==
PROVIDERS: ATTEND Family Medicine
DX: L03.90 Cellulitis, unspecified (principal)
CPT/HCPCS: 82040; 82247; 82310; 82374; 82435; 82565; 82947; 84075; 84132; 84155; 84295; 84450; 84460; 84520

== ENCOUNTER 2017-09-25 10:05 | Outpatient (RCR) | payer MEDICARE ==
[2017-04-14 08:26] VITALS: BMI 24.0
[2017-08-26 12:48] VITALS: BP 143/71
[~2017-09-25 10:05] MED LIST changes: +DEXTROSE 5%(*) 100 ML BAG 100 ML IVPB PRN; +LIDOCAINE/SOD BICARB 8.4% SYR ID PRN; +NS(*) 0.9% 100 ML BAG 100 ML IVPB PRN
[2017-09-26 13:06] LABS: PLATELET COUNT, AUTOMATED 289 K/uL (150-450)
[2017-09-26] MEDS ORDERED: ABATACEPT 250 MG SDV 750 MG in NS(*) 0.9% 100 ML BAG 100 ML IVPB ONE (13:40)
== END 2017-10-17 10:08 | disposition home or self-care (01) ==
LOC: SPU 10:05
PROVIDERS: ATTEND Internal Medicine Rheumatology
DX: M05.79 Rheumatoid arthritis with rheumatoid factor of multiple sites without organ or systems involvement (principal)
CPT/HCPCS: 85025; 96365; J0129; J7050; 82040; 82247; 82310; 82374; 82435; 82565; 82947; 84075; 84132; 84155; 84295; 84450; 84460; 84520

== ENCOUNTER → 2017-12-15 | Outpatient (CLI) | payer MEDICARE ==
[2017-04-14 08:26] VITALS: BMI 24.0
[~2017-12-15] MED LIST changes: -BENA40TA52 PO; +BENA40TA53 PO; -DEXTROSE 5%(*) 100 ML BAG 100 ML IVPB PRN; +INSU100I30 SQ; -LIDOCAINE/SOD BICARB 8.4% SYR ID PRN; -NS(*) 0.9% 100 ML BAG 100 ML IVPB PRN
== END ==
LOC: LAB 14:17
PROVIDERS: ATTEND Pharmacist Pharmacotherapy
DX: E11.65 Type 2 diabetes mellitus with hyperglycemia (principal)
CPT/HCPCS: 36415; 83036

== ENCOUNTER 2018-01-02 13:00 | Outpatient (RCR) | payer MEDICARE ==
[2017-04-14 08:26] VITALS: BMI 24.0
[2017-10-31 13:03] LABS: PLATELET COUNT, AUTOMATED 250 K/uL (150-450)
[2017-10-31] MEDS: NS(*) 0.9% 100 ML BAG 100 ML IVPB PRN (14:00)
[2017-10-31 17:13] VITALS: BP 134/84
[2017-12-05 13:24] LABS: PLATELET COUNT, AUTOMATED 304 K/uL (150-450)
[2017-12-05 13:59] VITALS: BP 130/78
[2017-12-05] MEDS: NS(*) 0.9% 100 ML BAG 100 ML IVPB PRN (14:44)
[~2018-01-02 13:00] MED LIST changes: +ABATACEPT 250 MG SDV 750 MG in NS(*) 0.9% 100 ML BAG 100 ML IVPB ONE; +DEXTROSE 5%(*) 100 ML BAG 100 ML IVPB PRN; +LIDOCAINE/SOD BICARB 8.4% SYR ID PRN; -METF-421 PO; +METF-452 PO
[2018-01-02 13:09] VITALS: BP 138/80
[2018-01-02 13:18] LABS: PLATELET COUNT, AUTOMATED 274 K/uL (150-450)
[2018-01-02] MEDS: NS(*) 0.9% 100 ML BAG 100 ML IVPB PRN (13:40)
[2018-01-02 14:30] VITALS: BP 136/74
[2018-01-02] MEDS ORDERED: ABATACEPT 250 MG SDV 750 MG in NS(*) 0.9% 100 ML BAG 100 ML IVPB ONE (14:30)
[2018-01-16] MEDS ORDERED: INSU100I30 SQ (16:29)
== END 2018-01-21 09:31 | disposition home or self-care (01) ==
LOC: SPU 13:00
PROVIDERS: ATTEND Internal Medicine Rheumatology
DX: M05.79 Rheumatoid arthritis with rheumatoid factor of multiple sites without organ or systems involvement (principal)
CPT/HCPCS: 85025; 96365; J0129; J7050; 82040; 82247; 82310; 82374; 82435; 82565; 82947; 84075; 84132; 84155; 84295; 84450; 84460; 84520

== ENCOUNTER 2018-04-07 12:40 | Outpatient (RCR) | payer MEDICARE ==
[2017-04-14 08:26] VITALS: BMI 24.0
[2018-02-02 10:05] VITALS: BP 158/86
[2018-02-02 10:22] LABS: PLATELET COUNT, AUTOMATED 250 K/uL (150-450)
[2018-02-02] MEDS: NS(*) 0.9% 100 ML BAG 100 ML IVPB PRN (10:50)
[2018-02-02] MEDS: LIDOCAINE/SOD BICARB 8.4% SYR ID PRN (10:50)
[2018-03-09 12:54] VITALS: BP 167/74
[2018-03-09 13:12] VITALS: BP 150/68
[2018-03-09 13:15] LABS: PLATELET COUNT, AUTOMATED 248 K/uL (150-450)
[2018-03-09] MEDS: NS(*) 0.9% 100 ML BAG 100 ML IVPB PRN (13:58)
[~2018-04-07 12:40] MED LIST changes: +BLOO1STR MC; +FLU180SY11 IM; -LIDOCAINE/SOD BICARB 8.4% SYR ID PRN; +PNEI IJ; +[UNRECOGNIZED DRUG - CODE] MC
[2018-04-07 12:55] VITALS: BP 147/72
[2018-04-07] MEDS: LIDOCAINE/SOD BICARB 8.4% SYR ID PRN (13:02)
[2018-04-07] MEDS: NS(*) 0.9% 100 ML BAG 100 ML IVPB PRN (13:02)
[2018-04-07 13:03] LABS: PLATELET COUNT, AUTOMATED 278 K/uL (150-450)
[2018-04-07] MEDS ORDERED: ABATACEPT 250 MG SDV 750 MG in NS(*) 0.9% 100 ML BAG 100 ML IVPB ONE (14:00)
[2018-05-04] MEDS ORDERED: INSU100I30 SQ (11:21)
== END 2018-05-03 ==
LOC: SPU 12:40
PROVIDERS: ATTEND Internal Medicine Rheumatology
DX: M05.79 Rheumatoid arthritis with rheumatoid factor of multiple sites without organ or systems involvement (principal)
CPT/HCPCS: 85025; 96365; J0129; J7050; 82040; 82247; 82310; 82374; 82435; 82565; 82947; 84075; 84132; 84155; 84295; 84450; 84460; 84520

== ENCOUNTER 2018-05-08 07:09 | Outpatient (RCR) | payer MEDICARE ==
[2017-04-14 08:26] VITALS: BMI 24.0
[~2018-05-08 07:09] MED LIST changes: -ABATACEPT 250 MG SDV 750 MG in NS(*) 0.9% 100 ML BAG 100 ML IVPB ONE; +LIDOCAINE/SOD BICARB 8.4% SYR ID PRN; +NS(*) 0.9% 100 ML BAG 100 ML IVPB PRN
[2018-05-08 12:49] VITALS: BP 136/83
[2018-05-08 13:23] LABS: PLATELET COUNT, AUTOMATED 237 K/uL (150-450)
[2018-05-08] MEDS ORDERED: ABATACEPT 250 MG SDV 750 MG in NS(*) 0.9% 100 ML BAG 100 ML IVPB ONE (14:00)
[2018-06-03] MEDS ORDERED: SULF-198 PO (16:24)
== END 2018-08-06 ==
LOC: SPU 07:09
PROVIDERS: ATTEND Internal Medicine Rheumatology
DX: M05.79 Rheumatoid arthritis with rheumatoid factor of multiple sites without organ or systems involvement (principal)
CPT/HCPCS: 85025; 96365; J0129; J7050; 82040; 82247; 82310; 82374; 82435; 82565; 82947; 84075; 84132; 84155; 84295; 84450; 84460; 84520

== ENCOUNTER → 2018-06-03 | Outpatient (CLI) | payer MEDICARE ==
[2017-04-14 08:26] VITALS: BMI 24.0
[~2018-06-03] MED LIST changes: -DEXTROSE 5%(*) 100 ML BAG 100 ML IVPB PRN; -LIDOCAINE/SOD BICARB 8.4% SYR ID PRN; -NS(*) 0.9% 100 ML BAG 100 ML IVPB PRN
== END ==
LOC: LAB 16:22
PROVIDERS: ATTEND Family Medicine
DX: L02.31 Cutaneous abscess of buttock (principal); B95.7 Other staphylococcus as the cause of diseases classified elsewhere
CPT/HCPCS: 87070; 87077; 87186; 87205

== ENCOUNTER → 2018-08-20 | Outpatient (CLI) | payer MEDICARE ==
[2017-04-14 08:26] VITALS: BMI 24.0
[~2018-08-20] MED LIST changes: +ERYT1OIN3 TOP
[2018-08-20 15:35] LABS: PLATELET COUNT, AUTOMATED 254 K/uL (150-450)
== END ==
LOC: LAB 15:06
PROVIDERS: ATTEND Family Medicine
DX: E11.9 Type 2 diabetes mellitus without complications (principal)
CPT/HCPCS: 36415; 82310; 82374; 82435; 82565; 82947; 83036; 84132; 84295; 84520; 85025

== ENCOUNTER → 2018-11-19 | Outpatient (CLI) | payer MEDICARE ==
[2017-04-14 08:26] VITALS: BMI 24.0
[~2018-11-19] MED LIST changes: -CALC-488 PO; +CALC-743 PO; -RANI-366 PO; +RANI-54 PO
[2018-11-19 16:24] LABS: PLATELET COUNT, AUTOMATED 250 K/uL (150-450)
== END ==
LOC: LAB 15:55
PROVIDERS: ATTEND Family Medicine
DX: E11.9 Type 2 diabetes mellitus without complications (principal)
CPT/HCPCS: 36415; 82040; 82247; 82310; 82374; 82435; 82565; 82607; 82947; 83036; 84075; 84132; 84155; 84295; 84450; 84460; 84520; 85025